=== PATIENT | male | born 1970 | race Hispanic/Latino ===

== ENCOUNTER 2023-07-27 19:10 | Inpatient (IN) | payer BC ==
[2023-07-27 20:17] VITALS: BMI 28.5
[2023-07-27] MEDS ORDERED: Nitroglycerin 0.4 MG TAB (25 Tab Bottle) SL PRN (21:38)
[2023-07-27] MEDS ORDERED: Glucagon 1 MG/ML KIT IM PRN (21:38)
[2023-07-27] MEDS ORDERED: Dextrose 5% in Water 1,000 ML IV PRN (21:38)
[2023-07-27] MEDS ORDERED: Dextrose 50% Abboject 50 ML SYRINGE SLOW IVP PRN (21:38)
[2023-07-27] MEDS: Atorvastatin Calcium 20 MG TAB PO SCH (22:28)
[2023-07-27] MEDS: HumaLOG 300 UNITS/3 ML VIAL SC PRN (22:30)
[2023-07-27 22:43] LABS: Magnesium 1.6 mg/dL (1.6-2.6)
[2023-07-27 22:57] LABS: Troponin I 0.374 ng/mL (< 0.028)
[2023-07-27] MEDS: Sodium Chloride 0.9% 1,000 ML IV SCH (23:09)
[2023-07-27] MEDS: Magnesium 2 GM/50 ML(in water) 2 GM in Premix 1 BAG IVPB SCH (23:10)
[2023-07-27] MEDS: Enoxaparin 80 MG (0.8 mL) SYRINGE SC SCH (23:10)
[2023-07-28 01:53] LABS: INR-International Normal Ratio 1.1; PTT 31.4 sec (22.0-33.0); Prothrombin Time 11.4 sec (9.5-12.1)
[2023-07-28 02:04] LABS: Critical Call Chem Troponin I RESULT DECREASING; Troponin I 0.298 ng/mL (< 0.028)
[2023-07-28 04:11] LABS: #Basophils 0.06 10x3/uL (0.0-0.2); #Eosinphils 0.51 10x3/uL (0.0-0.5); #Monocytes 0.93 10x3/uL (0.0-1.1); #Neutrophils 4.14 10x3/uL (1.5-8.4); %Basophils 0.7 % (0.0-2.0); %Eosinophils 6.3 % (0.0-6.0); %Lymphocytes 29.8 % (18.0-47.0); %Monocytes 11.5 % (0.0-10.0); %Neutrophils 51.5 % (40.0-75.0); Hematocrit 37.3 % (38.8-50.0); Hemoglobin 13.7 g/dL (13.5-17.5); Mean Corpuscular HGB CONC 36.7 g/dL (32.0-36.0); Mean Corpuscular Hemoglobin 33.7 pg (27.0-33.0); Mean Corpuscular Volume 91.9 fL (81.2-95.1); Mean Platelet Volume 11.8 fL (7.4-10.4); Platelet Count 148 10x3/uL (150-450); RBC Distribution Width 12.4 % (11.5-14.5); Red Blood Cell (RBC) Count 4.06 10x6/uL (4.32-5.72); White Blood Cell (WBC) Count 8.1 10x3/uL (3.5-10.5)
[2023-07-28 04:29] LABS: Anion Gap 13 mmol/L (10-20); BUN (Urea Nitrogen) 22 mg/dL (8.4-25.7); Calc. Creatinine Clearance 92 mL/min (70-130); Calcium 8.7 mg/dL (7.8-10.44); Carbon Dioxide 23 mmol/L (22-29); Cardiac Risk 2.3 (Less than 4.5); Chloride 109 mmol/L (98-107); Cholesterol 92 mg/dl (< 200 Desired); Estimated GFR 95; Glucose 186 mg/dL (70-105); HDL Cholesterol 40 mg/dL (>60 Neg Risk); LDL Cholesterol, Calculated 27 mg/dL; Potassium 3.7 mmol/L (3.5-5.1); Sodium 141 mmol/L (136-145); Triglycerides 123 mg/dL (Less than 150)
[2023-07-28] MEDS ORDERED: Enoxaparin 40 MG (0.4 mL) SYRINGE SC SCH (09:00)
[2023-07-28] MEDS ORDERED: Nitroglycerin 50 MG/250 ML BOT 250 ML ONE (09:25)
[2023-07-28] MEDS ORDERED: Heparin 10,000 UNITS/ 10 ML VIAL ONE (09:25)
[2023-07-28] MEDS ORDERED: Verapamil 5 MG/2 ML VIAL ONE (09:25)
[2023-07-28] MEDS ORDERED: Lidocaine 1% PF 5 ML VIAL ONE (09:33)
[2023-07-28] MEDS: Alogliptin 6.25 MG TAB PO SCH (09:40)
[2023-07-28] MEDS: metFORMIN 500 MG TAB PO SCH (09:40)
[2023-07-28] MEDS: Lisinopril 10 MG TAB PO SCH (09:40)
[2023-07-28] MEDS ORDERED: fentaNYL 50 mcg/mL 1 mL Vial ONE (10:14)
[2023-07-28] MEDS ORDERED: Midazolam HCl 2 mg/2 ml Vial ONE (10:14)
[2023-07-28] MEDS ORDERED: Acetaminophen/Codeine 30-300mg Tablet PO PRN (10:51)
[2023-07-28] MEDS ORDERED: Sodium Chloride 0.9% 200 ML IV PRN (10:51)
[2023-07-28] MEDS ORDERED: Nitroglycerin 0.4 MG TAB (25 Tab Bottle) SL PRN (10:51)
[2023-07-28] MEDS: Aspirin Chewable 81 MG TAB PO SCH (11:29)
[2023-07-28] MEDS ORDERED: Iopamidol 300 61% 100 ML VIAL FS ONE (12:38)
[2023-07-28] MEDS: Pantoprazole 40 MG VIAL IVP SCH (14:28)
[2023-07-28] MEDS: Lidocaine 2% Viscous Solution 10 ML, Aluminum & Magnesium Hydroxide 30 ML SSW SCH (16:01)
[2023-07-28] MEDS: Metoprolol Tartrate 25 MG TAB PO SCH (20:58)
[2023-07-28] MEDS: Atorvastatin Calcium 20 MG TAB PO SCH (20:58)
[2023-07-28] MEDS ORDERED: VILAZODONE HCL 10 MG PO SCH (21:00)
[2023-07-29] MEDS: Acetaminophen/Codeine 30-300mg Tablet PO PRN (00:57)
[2023-07-29 09:10] VITALS: BP 95/63
[2023-07-29 10:44] VITALS: TEMP 98.9
== END 2023-07-29 11:15 | disposition home or self-care (01) | DRG 281 ==
LOC: CSHTELE 19:10 → OBSVTOIN 21:38
PROVIDERS: ADMIT Family Medicine; ATTEND Family Medicine
PROC: 4A023N7 Measurement of Cardiac Sampling and Pressure, Left Heart, Percutaneous Approach (ICD-10-PCS; principal; 2023-07-28)
PROC: B2111ZZ Fluoroscopy of Multiple Coronary Arteries using Low Osmolar Contrast (ICD-10-PCS; 2023-07-28)
PROC: B2151ZZ Fluoroscopy of Left Heart using Low Osmolar Contrast (ICD-10-PCS; 2023-07-28)
DX: I47.10 Supraventricular tachycardia, unspecified (principal); I24.9 Acute ischemic heart disease, unspecified; I21.A1 Myocardial infarction type 2; E11.22 Type 2 diabetes mellitus with diabetic chronic kidney disease; F41.9 Anxiety disorder, unspecified; I12.9 Hypertensive chronic kidney disease with stage 1 through stage 4 chronic kidney disease, or unspecified chronic kidney disease; I95.9 Hypotension, unspecified; N18.30 Chronic kidney disease, stage 3 unspecified; E78.5 Hyperlipidemia, unspecified; I45.10 Unspecified right bundle-branch block; Z79.899 Other long term (current) drug therapy; Z98.890 Other specified postprocedural states
CPT/HCPCS: 36415; 36416; 80048; 80061; 83735; 84484; 85025; 93005; 93010; 93458; 99152; C1769; C1894; C9113; J1644; J1650; J1815; J2250; J3010; J3475; J7050; Q9967

== ENCOUNTER 2023-08-02 13:14 | Emergency (ER) | payer BC ==
[2023-08-02 13:50] LABS: #Basophils 0.07 10x3/uL (0.0-0.2); #Eosinphils 0.37 10x3/uL (0.0-0.5); #Monocytes 1.44 10x3/uL (0.0-1.1); #Neutrophils 8.06 10x3/uL (1.5-8.4); %Basophils 0.6 % (0.0-2.0); %Eosinophils 3.1 % (0.0-6.0); %Lymphocytes 17.6 % (18.0-47.0); %Monocytes 11.9 % (0.0-10.0); %Neutrophils 66.4 % (40.0-75.0); Hematocrit 39.9 % (38.8-50.0); Hemoglobin 14.5 g/dL (13.5-17.5); Mean Corpuscular HGB CONC 36.3 g/dL (32.0-36.0); Mean Corpuscular Hemoglobin 33.7 pg (27.0-33.0); Mean Corpuscular Volume 92.8 fL (81.2-95.1); Mean Platelet Volume 10.7 fL (7.4-10.4); Platelet Count 208 10x3/uL (150-450); White Blood Cell (WBC) Count 12.1 10x3/uL (3.5-10.5)
[2023-08-02 14:01] LABS: ALT (SGPT) 22 U/L (8-55); AST (SGOT) 11 U/L (5-34); Albumin 3.7 g/dL (3.5-5.0); Alkaline Phosphatase 64 U/L (40-110); Anion Gap 15 mmol/L (10-20); BUN (Urea Nitrogen) 14 mg/dL (8.4-25.7); Calc. Creatinine Clearance 0 mL/min (70-130); Calcium 9.4 mg/dL (7.8-10.44); Carbon Dioxide 28 mmol/L (22-29); Chloride 99 mmol/L (98-107); Estimated GFR 79; Globulin 3.3 g/dL (2.4-3.5); Glucose 148 mg/dL (70-105); Potassium 4.1 mmol/L (3.5-5.1); Sodium 138 mmol/L (136-145)
[2023-08-02 14:05] LABS: Troponin I Less than 0.010 ng/mL (< 0.028)
[2023-08-02 14:19] LABS: SARS-CoV-2 E Target Negative; SARS-CoV-2 N2 Target Negative; SARS-CoV-2 NAA Rapid Test Not Detected (NotDetected); SARS-CoV-2 RdRP gene Negative
== END 2023-08-02 16:00 | disposition home or self-care (01) ==
LOC: CSHERS 13:14
DX: R07.89 Other chest pain (principal); J06.9 Acute upper respiratory infection, unspecified; I10 Essential (primary) hypertension; E11.9 Type 2 diabetes mellitus without complications
CPT/HCPCS: 36415; 71045; 80053; 84484; 85025; 93005; U0002